=== PATIENT | female | born 1965 | race Caucasian/White ===

== ENCOUNTER → 2024-06-30 15:30 | Outpatient (REF) | payer OTHER, SELFPAY | LOC: WDC 15:30 | PROVIDERS: ATTENDING PHYSICIAN Physician Assistant Medical; FAMILY PHYSICIAN Family Medicine | DX: Z12.31 Encounter for screening mammogram for malignant neoplasm of breast (principal) | CPT/HCPCS: 77063; 77067 ==

== ENCOUNTER → 2025-02-06 08:29 | Outpatient (REF) | payer OTHER, SELFPAY | LOC: RAD 08:29 | PROVIDERS: ATTENDING PHYSICIAN Registered Nurse Oncology; REFERRING PHYSICIAN Family Medicine | DX: M84.80 Other disorders of continuity of bone, unspecified site (principal) | CPT/HCPCS: 77080 ==

== ENCOUNTER → 2025-07-02 16:31 | Outpatient (REF) | payer OTHER, SELFPAY | LOC: WDC 16:31 | PROVIDERS: ATTENDING PHYSICIAN Physician Assistant Medical; FAMILY PHYSICIAN Family Medicine | DX: Z12.31 Encounter for screening mammogram for malignant neoplasm of breast (principal) | CPT/HCPCS: 77063; 77067 ==